=== PATIENT | female | born 1930 ===

== ENCOUNTER 2016-06-22 08:20 | Emergency (ER) | payer MEDICARE ==
--- NOTE | 2016-06-22 09:24 | UC ---
Complaint Female HPI - HPI Summary HPI Summary: [ End ]"I think I have a UTI.." Pt c/o being uncomfortable and urinary frequency. States she has not had a UTI in 10 years. Has urgency, dysuria, feeling the need to go more and incompletely. No side pain or abdominal pain . [ End ] - History Of Current Complaint Stated Complaint: URINARY COMPLAINT Time Seen by Provider: 06/22/16 09:03 Hx Obtained From: Patient ?: No Onset/Duration: Sudden Onset Severity Initially: Mild Severity Currently: Moderate Character: Burning Aggravating Factor(s): Nothing Alleviating Factor(s): Nothing Associated Signs And Symptoms: Negative: Fever, Back Pain - Risk Factors Ectopic Risk Factor: Negative Ovarian Torsion Risk Factor: Negative - Allergies/Home Medications Allergies/Adverse Reactions: Allergies Allergy/AdvReac Type Severity Reaction Status Date / Time Gluten Meal AdvReac Constipatio Verified 06/22/16 09:08 n antibiotics AdvReac Constipatio Uncoded 06/22/16 09:05 n Home Medications: Home Medications Polyethylene Glycol 3350* [Miralax*] 17 gm PO DAILY 06/22/16 [History Confirmed 06/22/16] Probiotic Product [Probiotic Daily] 1 cap PO DAILY 06/22/16 [History Confirmed 06/22/16] PMH/Surg Hx/FS Hx/Imm Hx Previously Healthy: Yes Endocrine History Of: Denies: Diabetes, Thyroid Disease Cardiovascular History Of: Denies: Cardiac Disorders GI/ History Of: Denies: Gastroesophageal Reflux, Ulcer, Gastrointestinal Bleed, Gall Bladder Disease - Surgical History Surgical History: Yes Surgery Procedure, Year, and Place: Tonsillectomy. Tubal. bilateral knee replacements - Family History Known Family History: Positive: None - Social History Occupation: Retired Lives: With Family Alcohol Use: Rare Substance Use Type: None Smoking Status (MU): Former Smoker Type: Cigarettes Have You Smoked in the Last Year: No When Did the Patient Quit Smoking/Using Tobacco: in college Review of Systems Constitutional: Negative Skin: Negative Eyes: Negative ENT: Negative Respiratory: Negative Cardiovascular: Negative Gastrointestinal: Negative Genitourinary: Dysuria Motor: Negative Neurovascular: Negative Musculoskeletal: Negative Neurological: Negative Psychological: Negative All Other Systems Reviewed And Are Negative: Yes Physical Exam Triage Information Reviewed: Yes Appearance: Well-Appearing, No Pain Distress, Well-Nourished Vital Signs: Initial Vital Signs Temp 98.1 F 06/22/16 08:56 Pulse 70 06/22/16 08:56 Resp 16 06/22/16 08:56 BP 154/76 06/22/16 08:56 Pulse Ox 98 06/22/16 08:56 Eye Exam: Normal ENT Exam: Normal Dental Exam: Normal Neck exam: Normal Neck: Positive: 1 Respiratory Exam: Normal Cardiovascular Exam: Normal Abdominal Exam: Normal Abdomen Description: Positive: Nontender. Negative: CVA Tenderness (R), CVA Tenderness (L), Distended, Guarding Musculoskeletal Exam: Normal Neurological Exam: Normal Psychological Exam: Normal Skin Exam: Normal Complaint Female Dx - Differential Dx/Diagnosis Differential Diagnosis/HQI/PQRI: Urinary Tract Infection Provider Diagnoses: UTI - Physician Notifications Discussed Patient Care With: As we discussed , drink plenty of water, increase the probiotics and miralax to twice daily to prevent constipation. You are placed on Cipro for 3 days since you have allergy to sulfa and macrobid. Discharge - Discharge Plan Condition: Good Disposition: HOME Prescriptions: Ciprofloxacin HCl [Cipro 250 MG TAB] 250 mg PO BID #6 tab Patient Education Materials: Urinary Tract Infection in Women (ED) Referrals: Ashley Parada NP [Nurse Practitioner] - 3 Days
[2016-06-22 09:40] VITALS: BP 156/73
== END 2016-06-22 09:42 | disposition home or self-care (01) ==
LOC: UCCORT 08:20
DX: N39.0 Urinary tract infection, site not specified (principal); Z88.1 Allergy status to other antibiotic agents; Z87.891 Personal history of nicotine dependence
CPT/HCPCS: 81003; 87086; 99212; G0463